=== PATIENT | female | born 1975 | race Caucasian/White ===

== ENCOUNTER 2018-03-08 12:56 | Observation (INO) ==
[2018-03-08 13:40] LABS: Bilirubin,Urine Negative (Negative); Blood,Urine Negative (Negative); Clarity,Urine Clear (Clear); Color,Urine Dark Yellow (Yellow); Glucose,Urine (UA) Normal (Normal); Ketones,Urine Negative (Negative); Leukocyte Esterase,Urine Negative (Negative); Nitrite,Urine Negative (Negative); Protein,Urine Negative (Neg-Trace); Specific Gravity,Urine 1.026 (1.010-1.025); Urobilinogen,Urine Normal (Normal)
[2018-03-08 14:30] LABS: Amphetamine Screen,Urine Negative ng/mL (Cutoff=1000); Barbiturate Screen,Urine Negative ng/mL (Cutoff=200); Benzodiazepines Screen,Urine Negative ng/mL (Cutoff=200); Cannabinoid Screen,Urine Negative ng/mL (Cutoff = 50); Cocaine Screen,Urine Negative ng/mL (Cutoff= 300); Opiate Screen,Urine Negative ng/mL (Cutoff=300); Phencyclidine Screen,Urine Negative ng/mL (Cutoff=25)
[2018-03-08] MEDS ORDERED: Ondansetron ODT 4 MG TAB.RAPDIS SL PRN (14:46)
--- NOTE | 2018-03-08 14:50 | Discharge Summary ---
Date of Encounter: 03/08/18 Time of Encounter: 14:52 - Discharge Diagnosis (1) 25 weeks gestation of Priority: Primary Status: Acute Comments: admitted for observation for labor (2) GDM (gestational diabetes mellitus) Priority: Secondary Status: Acute Comments: Patient reports Metformin was increased on Thursday from 500 BID to 1000mg BID. Qualifiers: Gestational diabetes mellitus control: oral hypoglycemic-controlled Trimester: second trimester Qualified Code(s): O24.415 - Gestational diabetes mellitus in , controlled by oral hypoglycemic drugs - Discharge Medications Prescriptions: Ondansetron ODT [Zofran ODT] 4 mg SL Q6HR PRN #30 tab.rapdis PRN Reason: Nausea And Vomiting Home Medications: Ondansetron ODT [Zofran ODT] 4 mg SL Q6HR PRN #30 tab.rapdis 03/08/18 [Rx] Allergies/Adverse Reactions: 3 Allergy/AdvReac Type Severity Reaction Status Date / Time sulfamethoxazole AdvReac See Verified 04/07/17 07:39 [From Bactrim] Comments trimethoprim [From Bactrim] AdvReac See Verified 04/07/17 07:39 Comments Data Procedures and tests throughout hospitalization: Laboratory Tests 03/08/18 03/08/18 13:27 13:27 Urine Color Dark Yellow Urine Clarity Clear Urine pH 6.0 Ur Specific [place] 1.026 H Urine Protein Negative Urine Glucose (UA) Normal Urine Ketones Negative Urine Blood Negative Urine Nitrite Negative Urine Bilirubin Negative Urine Urobilinogen Normal Ur Leukocyte Esterase Negative Ur Culture Indicated? NO Urine Opiates Screen Negative Ur Barbiturates Screen Negative Ur Phencyclidine Scrn Negative Ur Amphetamines Screen Negative U Benzodiazepines Scrn Negative Urine Cocaine Screen Negative U Marijuana (THC) Screen Negative Labs on day of discharge: Labs from last 24 hours 03/08/18 03/08/18 13:27 13:27 Urine Color Dark Yellow Urine Clarity Clear Urine pH 6.0 Ur Specific [place] 1.026 H Urine Protein Negative Urine Glucose (UA) Normal Urine Ketones Negative Urine Blood Negative Urine Nitrite Negative Urine Bilirubin Negative Urine Urobilinogen Normal Ur Leukocyte Esterase Negative Ur Culture Indicated? NO Urine Opiates Screen Negative Ur Barbiturates Screen Negative Ur Phencyclidine Scrn Negative Ur Amphetamines Screen Negative U Benzodiazepines Scrn Negative Urine Cocaine Screen Negative U Marijuana (THC) Screen Negative Date of admission: 03/08/18 12:56 Primary care physician: Deborah Holman CNP Discharging clinician: Darya Mccoy Anticipated date of discharge: 03/08/18 - Patient Status Disposition: Home, Self-Care Condition: Good Functional capacity at discharge: independent ambulation - Discharge Instructions Follow Up With: Deborah Holman CNP [Primary Care Provider] - Maribel Jasmine DO [Partnered Physician] - - Diet and Activity Activity: increase activity as tolerated Diet: regular diet Hospital Course FIELD ACCOUNT DIRECTOR Hospital course: Patient is a 42 y/o at 25w2d presents to labor and delivery with complaints of abdominal cramping. Patient reports Metformin dose was changes last thursday from 500g po BID to 1000mg po BID. Patient states she has been nauseated and had diarrhea since. Patient called [facility] and they told her to call Dr. Jasmine's office to make sure she wasn't in labor. Patient denies any contractions, VB or LOF. Denies dysuria or urinary frequency. Patient reports + FM. Time Attestation: Total time spent providing and/or coordinating discharge services: Time Spent: Less than 30 minutes Exam - Constitutional General appearance IM: A&O X 3, pleasant, answers questions appropriately - Respiratory Respiratory exam: Present: CTAB - Cardiovascular Cardiovascular exam IM: Present: RRR, +S1, +S2 - GI/Abdominal GI/Abdominal exam IM: hyperactive bowel sounds - Extremities Exam Extremities exam IM: Present: full ROM, normal capillary refill - Neurological Exam Neurological exam: alert, oriented X3, reflexes normal - Other Additional findings: SVE: Closed/thick/ballotable FHTs 150 bpm appropriate for gestational age. No contractions noted. - VTE Reasons for not Prescribing Prophylaxis: Treatment not Indicated - Low risk for VTE
== END 2018-03-08 15:06 | disposition home or self-care (01) ==
LOC: 1NENULAB
PROVIDERS: ADMIT Student in an Organized Health Care Education/Training Program; ATTEND Student in an Organized Health Care Education/Training Program

== ENCOUNTER 2018-06-04 11:55 | Inpatient (IN) ==
[2018-06-04] MEDS ORDERED: Famotidine 20 MG/2 ML VIAL IVP PRN (12:56)
[2018-06-04] MEDS ORDERED: Naloxone 0.4 MG/ML INJ IVP PRN (12:56)
[2018-06-04] MEDS ORDERED: Ringers Solution, Lactated 1,000 ML IVC SCH (13:00)
[2018-06-04] MEDS ORDERED: miSOPROStol 100 MCG TABLET PO ONE (14:28)
[2018-06-04 14:29] LABS: Basophils % 0.2 %; Eosinophils % 0.2 %; Hematocrit 35.1 % (35.3-44.9); Hemoglobin 11.9 g/dL (11.5-15.4); Immature Granulocytes % 0.9 % (0-4); Lymphocytes # 1.9 K/mcL (0.6-4.6); Lymphocytes % 18.6 %; Mean Corpuscular HGB Conc 33.9 g/dL (31.6-35.5); Mean Corpuscular Hemoglobin 30.5 pg (28.0-33.3); Mean Platelet Volume 10.7 fL (9.4-12.4); Monocytes # 0.6 K/mcL (0.0-1.3); Monocytes % 5.6 %; Neutrophils # 7.4 K/mcL (1.6-8.9); Platelet Count 197 K/mcL (140-400); Red Cell Distribution Width 14.1 % (11.5-14.5); Segmented Neutrophils % 74.5 %
--- NOTE | 2018-06-04 14:38 | OB/GYN History & Physical ---
Date of Encounter: 06/05/18 Time of Encounter: 14:34 Assessment and Plan (1) GDM (gestational diabetes mellitus) Current visit: No Status: Acute Patient induction with cytotec on 06/04/2018 at 38 weeks + 1 days gestation due to complicated by poorly controlled gestational diabetes mellitus. Qualifiers: Gestational diabetes mellitus control: oral hypoglycemic-controlled Trimester: second trimester Qualified Code(s): O24.415 - Gestational diabetes mellitus in , controlled by oral hypoglycemic drugs (2) 38 weeks gestation of Current visit: Yes Status: Acute History of Present Illness Chief complaint: Labor induction at 38 weeks + 1 days HPI: Ms. Dodge is a 43 year old female () presenting to Labor and Delivery at 38 weeks + 1 days gestation for the induction of labor. 1. Ms. Dodge's has been complicated by gestational diabetes mellitus with poorly controlled blood sugar levels. The patient states that she takes Metformin for diabetes management and is "paranoid" regarding the use of insulin. 2. The patient states that her last ended in spontaneous on 04/07/2017 and states that her only symptoms prior to this event was waking up to a large amount of blood per vagina on her bedsheets. 3. The patient states that she has experienced some scant mucus discharge within the past 3 days. The patient describes the discharge as a thick, clear "snot" in nature and denies malodorous nature of the discharge or identifiable bleeding. 4. The patient states that the baby has been moving well as per usual. Review of Systems: 1. The patient admits to difficulty with ambulation and some shortness of breath associated with fatigue and exercise intolerance, which the patient related to her related habitus. 2. The patient denies headache, vision change, chest pain, shortness of breath, nausea or vomiting. Review of also bleeding status the correct with the addition that patient was induced today because during routine monitoring for poorly controlled diabetes in office heart tones were relatively tachycardic and there was probable late deceleration. I did discuss with mine motor engineer who was caring for patient today and we agreed with the poorly controlled diabetes and the nonreassuring tracing interval cervix to be best to induce patient's labor. I did discuss this with patient along with risks of prematurity she concurred. Past Med Surg Social Fam HX - Past Medical History Source: patient, old records reviewed, nursing notes reviewed Medical history: other (Hx of poorly controlled gestational diabetes mellitus, prior spontaneous on 04/07/2017. ) Additional medical history: asthma "as infant" per pt. broken jaw,. anemia Psychiatric history: no psych history - Past Surgical History Surgical History: other Additional surgical history: jaw surgery - Social History Smoking Status: Never smoker Smokeless Tobacco Status: No Alcohol use: none Drug use: none - Family History Mother Living Status: Hx Family Cardiac Disorders: Yes (heart attack) Hx Family Respiratory Disorders: No Hx Family Cancer: Yes Hx Family GI Disorders: No Hx Family Genitourinary Disorders: No Hx Family Endocrine Disorder: Yes (DM) Hx Family Musculoskeletal Disorders: No Hx Family Neuromuscular Disorders: No Hx Family Neurologic Disorders: No Hx Family HEENT Disorders: No Hx Family Autoimmune Disorders: No Hx Family Reproductive Disorders: No Hx Family Psychosocial Disorders: No Hx Family Medical Disorders: No Obstetrical History - Pregnancies : 4 Para: 2 Term: 2 : 0 Ab's: 1 Livin - History/Complications History/Complications: History of spontaneous with d&c on 04/07/2017. Medications and Allergies Ondansetron ODT [Zofran ODT] 4 mg SL Q6HR PRN #30 tab.rapdis 03/08/18 [Rx] Metformin HCl [Glucophage] 1,000 mg PO BID 06/04/18 [History] 3 Allergy/AdvReac Type Severity Reaction Status Date / Time sulfamethoxazole AdvReac See Verified 04/07/17 07:39 [From Bactrim] Comments trimethoprim [From Bactrim] AdvReac See Verified 04/07/17 07:39 Comments Review of System OB All systems PM: reviewed and no additional remarkable complaints except as stated Exam - Constitutional Constitutional: well developed, well nourished, no acute distress, obese - HEENT HEENT: Normocephaly, Mucus Membranes Moist - Neck Neck exam: normal inspection, trachea midline - Lungs Respiratory exam: CTAB - Cardiovascular Cardiovascular exam: RRR, +S1, +S2 - Abdomen Abdomen: Present: bowel sounds normal, gravid, non tender, diffuse tenderness Results Result Diagrams: 06/04/18 14:23 06/04/18 14:23 Abnormal lab results Hct 35.1 % (35.3-44.9) L 06/04/18 14:23 All other labs normal. - VTE Reasons for not Prescribing Prophylaxis: Treatment not Indicated - Low risk for VTE
[2018-06-04 14:46] LABS: Amphetamine Screen,Urine Negative ng/mL (Cutoff=1000); Barbiturate Screen,Urine Negative ng/mL (Cutoff=200); Benzodiazepines Screen,Urine Negative ng/mL (Cutoff=200); Cannabinoid Screen,Urine Negative ng/mL (Cutoff = 50); Cocaine Screen,Urine Negative ng/mL (Cutoff= 300); Opiate Screen,Urine Negative ng/mL (Cutoff=300); Phencyclidine Screen,Urine Negative ng/mL (Cutoff=25)
--- NOTE | 2018-06-04 16:07 | OB Labor Progress Note ---
Date of Encounter: 06/04/18 Time of Encounter: 16:04 Labor Progress Note - Subjective Subjective: Breathing through contractions; vaginal exams are excruciating for patient. - Vital Signs Vital Signs: VSS - Cervix Cervix: 5-6/80/0 - Heart Tones Heart Tones: 160 - Guinda Guinda: Cannot find contractions on toco; palpate moderate - Interventions Interventions: Arom for moderate amount of clear fluid - Plan Plan: Continue routine labor management GBS negative Patient may have epidural upon request Anticipate vaginal delivery POC per consult with Dr Dhaliwal
[2018-06-04] MEDS ORDERED: Bupivacaine-MPF 0.25% 10 ML VIAL ONE (16:52)
[2018-06-04] MEDS ORDERED: Lidocaine -MPF 2% 5 ML VIAL ONE (16:52)
[2018-06-04] MEDS ORDERED: *HR* FentaNYL (PF) 100 MCG/2 ML VIAL ONE (16:52)
[2018-06-04] MEDS ORDERED: Epidural Premix (fent/bupiv) 110 ML EP ONE (16:53)
--- NOTE | 2018-06-04 17:42 | Anesthesia Evaluation PreOp ---
Date of Encounter: 06/04/18 Time of Encounter: 16:43 - Past History Planned Operation: labor epidural Cardiac History: Denies any Significant Hx Pulmonary History: Denies Any Significant HX DRAY TRUCK DRIVER History: Denies Any Significant HX Other Medical History: Other (Gestational diabetes, on Metformin. MO: BMI 40.) Anesthesia History: No Prior Anesthetic Complications, Past Anesthesia (ORIF of jaw fx, D&C. No problems with GA. No FHAP. Had epidural with previous 2 pregnancies without problems.) : Yes Alcohol Use: none Drug use: none Medications and Allergies Ondansetron ODT [Zofran ODT] 4 mg SL Q6HR PRN #30 tab.rapdis 03/08/18 [Rx] 3 Allergy/AdvReac Type Severity Reaction Status Date / Time sulfamethoxazole AdvReac See Verified 04/07/17 07:39 [From Bactrim] Comments trimethoprim [From Bactrim] AdvReac See Verified 04/07/17 07:39 Comments - Meds/Allergy Pre-op Review Medications Reviewed: Yes Allergies Reviewed: Yes Beta Blockers on Current Med List: No Anesthesia Results - Labs 06/04/18 14:23 06/04/18 14:23 Anesthesia Exam 130/83, 103, 16. FHTs 150s. Height: 1.63m Weight: 105kg NPO (# of Hours): >8 Pain Scale: 8 Pain Scale Used: Numeric (1 - 10) - HEENT Pupil (Motor): Pupils equal, EOMI Mallampati: III Teeth: Normal Oral Opening: Greater than 3 - DRAY TRUCK DRIVER LOC: Oriented DRAY TRUCK DRIVER Motor: Normal RUE, Normal LUE, Normal RLE, Normal LLE, Normal Face DRAY TRUCK DRIVER Sensory: Normal: RUE, LUE, RLE, LLE, Face - Cardiac Rhythm: Regular - Pulmonary Breath Sounds: bilateral Clear Respiratory Effort: Symmetrical Anesthesia Assess/Plan ASA Score: 3 Modified Gera Scale for Level of Consciousness: Cooperative, oriented, and tranquil Anesthetic Plan: Regional Monitoring Plan: Standard Monitors
--- NOTE | 2018-06-04 17:46 | Anesthesia Procedures ---
Date of Encounter: 06/04/18 Time of Encounter: 16:55 Procedures: Anesthesia - Epidural/Spinal Patient ID/Chart reviewed: Yes Patient examined: Yes OB Eval: Gestational age: 38 OB Eval: : 4 OB Eval: Hx Para: 2 OB Eval: Dilated at (cm): 5 OB Eval: Contractions: Non-stressed pattern Consent Obtained: Yes Supplemental Oxygen: None/Room Air Site Prep: Aseptic Technique, Sterile prep and drape, Povidone-Iodine 1% Patient position: upright Local Anesthetic: Lidocaine 1% Amount of Local Anesthetic used: 5 Touhy Needle Gauge: 18 Touhy Needle Depth (cm): 8 Catheter Depth at Skin (cm): 18 Test Dose (1.5% Lido + Epi): Volume given (mls): 3 Test Dose Result: Negative Loading Dose: 0.25% Marcaine (mls): 8 Loading Dose: Fentanyl (mcg): 100 Loading Dose Administered: Thru Catheter Infusion Med: 0.125% Bupivacaine w/ 2 mcg/ml Fentanyl Infusion Rate (mls/hr): [address]: Tegaderm, Tape Interspace Used: L3-L4 Loss of Resistance ([place]): Yes Blood: No CSF: No Paresthesia: No Vitals + FHT's: 3 Vital Signs Time 1655 1712 1715 1720 1725 BP 130/83 140/81 129/70 126/72 111/69 Pulse 92 121 108 114 113 FHTs 150 150 150 150 150
[2018-06-04] MEDS ORDERED: *HR* FentaNYL (PF) 100 MCG/2 ML VIAL EP ONE (17:47)
[2018-06-04] MEDS ORDERED: Bupivacaine-MPF 0.25% 10 ML VIAL EP ONE (17:47)
[2018-06-04] MEDS ORDERED: EPHEDrine 50 MG/ML VIAL ONE (17:52)
[2018-06-04] MEDS ORDERED: Epidural Premix (fent/bupiv) 110 ML EP SCH (18:00)
--- NOTE | 2018-06-04 23:23 | OB Labor Progress Note ---
Date of Encounter: 06/04/18 Time of Encounter: 23:20 Labor Progress Note - Subjective Subjective: Pt comfortable with epidural. - Cervix Cervix: small rim on right side, 100%, +1 - Heart Tones Heart Tones: good BTBV, good chcf variability, occ early and late decels noted. - Interventions Interventions: Cont. IVF and close monitoring of FHT's. Cont. oxygen - Plan Plan: Expect .
[2018-06-05] MEDS ORDERED: Oxytocin 20 units/ LR 1000 mL 20 UNIT/1,000 ML BAG IVC ONE (05:25)
[2018-06-05] MEDS ORDERED: Oxytocin 20 units/ LR 1000 mL 20 UNIT/1,000 ML BAG IVC SCH ×2 (05:30→07:15)
--- NOTE | 2018-06-05 05:32 | OB Labor Progress Note ---
Date of Encounter: 06/05/18 Time of Encounter: 05:30 Labor Progress Note - Subjective Subjective: Pt very comfortable with epidural. - Vital Signs Vital Signs: afebrile, vss - Cervix Cervix: c/c/c/+2 - Heart Tones Heart Tones: RNST no decels - [place]: uc's q 2-5 min. - Interventions Interventions: D/w pt options, at this point baby looks good with heart rate tracing. Will begin Pitocin and cont. to cut down epidural. - Plan Plan: Cont. labor.
[2018-06-05] MEDS ORDERED: Acetaminophen 325 MG TABLET PO PRN (07:12)
[2018-06-05] MEDS ORDERED: Rho Immune Globulin 1,500 UNIT SYRINGE IM PRN (07:12)
[2018-06-05] MEDS ORDERED: Measles/Mumps/Rubella Vacc 0.5 ML VIAL SQ PRN (07:12)
--- NOTE | 2018-06-05 07:21 | OB/GYN Procedure Note ---
Delivery - Delivery Date: 06/05/18 Provider: [place] Dhaliwal Delivery induction: misoprostol Delivery monitor: internal FHT, internal uterine Anesthesia: epidural Quantitated Blood Loss: 200 - (s) Infant A Delivery Date: 06/05/18 Delivery Time: 06:52 Presentation: vertex Position: KRISTEN Route of delivery: Gender: Male Viability: Viable Pounds: 8 Ounces: 2 at 1 minute: 9 at 5 mins: 9 Shoulder Dystocia: not encountered Specimens collected: cord blood Placenta: spontaneous Cord: 3 umbilical vessels - Repair Episiotomy: none Laceration Description: Perineal - 2nd Degree, Labial (Right) - Complications Delivery complications: none - Disposition Mom disposition: stable in LDR [place] disposition: stable in LDR - Comments Comments: Patient is status post normal spontaneous vaginal delivery of liveborn infant from right occiput anterior presentation. There is no nuchal cord noted and no shoulder dystocia. With spontaneous delivery of normal placenta with three- vessel cord. There is a partial second-degree laceration was repaired with 3-0 Vicryl under epidural anesthesia. There is a right labial laceration was reapproximated with a single 3-0 Vicryl suture. Estimated blood loss 200 mL there is no complications uterus was firm below the umbilicus and mother recovered in delivery room.
[2018-06-05] MEDS: Prenatal Vit/FA 1 EACH TABLET PO SCH (13:33)
[2018-06-05] MEDS: Ibuprofen 600 MG TABLET PO PRN (15:50)
[2018-06-05] MEDS: *HR* Metformin 500 MG TABLET PO SCH (17:01)
[2018-06-06 07:28] LABS: Immature Granulocytes % 0.9 % (0-4); Mean Corpuscular HGB Conc 32.1 g/dL (31.6-35.5); Mean Corpuscular Hemoglobin 29.2 pg (28.0-33.3); Mean Corpuscular Volume 90.9 fL (83.0-100.0); Mean Platelet Volume 10.3 fL (9.4-12.4); Platelet Count 185 K/mcL (140-400); Red Blood Count 3.08 M/mcL (3.82-4.97); Red Cell Distribution Width 14.6 % (11.5-14.5); Segmented Neutrophils % 73.1 %
[2018-06-06 07:29] LABS: Basophils % 0.2 %; Eosinophils # 0.1 K/mcL (0.0-0.6); Eosinophils % 0.8 %; Lymphocytes # 1.8 K/mcL (0.6-4.6); Monocytes # 0.6 K/mcL (0.0-1.3); Neutrophils # 7.1 K/mcL (1.6-8.9)
[2018-06-06] MEDS: Ibuprofen 600 MG TABLET PO PRN (08:08)
[2018-06-06] MEDS: Prenatal Vit/FA 1 EACH TABLET PO SCH (08:08)
[2018-06-06] MEDS: *HR* Metformin 500 MG TABLET PO SCH (08:09)
[2018-06-06 09:22] VITALS: BP 106/69
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
== END 2018-06-06 12:10 | disposition home or self-care (01) | DRG 560 ==
LOC: 1NENULAB 11:55 → 1NENUOBS 06-05 10:22
PROVIDERS: ADMIT Obstetrics & Gynecology; ATTEND Obstetrics & Gynecology